=== PATIENT | female | born 1965 | race African-American/Black ===

== ENCOUNTER → 2022-11-04 | Emergency (ER) | payer BC, OTHER ==
[~2022-11-04] VITALS: Ht 172.7 cm; Wt 95.3 kg
[~2022-11-04] MED LIST: FAMO20TA8 PO; FAMOTIDINE 20 MG TABLET PO ONE; MAG-AL HYDROX/SIMETH 30 ML UDC PO ONE; POLY119P2 PO
[2022-11-04 20:50] LABS: BASOPHILS # (AUTO) 0.1 K/uL (0.0-0.2); EOSINOPHILS % (AUTO) 0.6 % (0.0-4.0); HEMATOCRIT 43.8 % (36-48); HEMOGLOBIN 14.3 g/dL (12.0-16.0); LYMPHOCYTES # (AUTO) 1.3 K/uL (1.0-5.5); LYMPHOCYTES % (AUTO) 25.1 % (20.5-51.5); MEAN CORPUSCULAR HEMOGLOBIN 29 pg (27-31); MEAN CORPUSCULAR HGB CONC 33 % (32-36); MEAN CORPUSCULAR VOLUME 87 fL (79.0-98.0); MONOCYTES # (AUTO) 0.3 K/uL (0.0-1.0); MONOCYTES % (AUTO) 5.8 % (1.7-9.3); NEUTROPHILS # (AUTO) 3.6 K/uL (1.8-7.7); NEUTROPHILS % (AUTO) 67.5 % (40.0-70.0); PLATELET COUNT (AUTO) 180 K/uL (130-430); RED BLOOD CELL COUNT(AUTO) 5.03 MIL/uL (4.2-6.2); RED CELL DISTRIBUTION WIDTH 13.8 % (9.0-15.0); WHITE BLOOD COUNT (AUTO) 5.4 K/uL (4.8-10.8)
[2022-11-04 21:00] LABS: CALCIUM 9.5 mg/dL (8.4-11.0); CREATININE 1.01 mg/dL (0.55-1.30); POTASSIUM 3.7 mmol/L (3.5-5.1)
[2022-11-04 21:05] LABS: TOTAL BILIRUBIN 0.5 mg/dL (0.0-1.0)
[2022-11-04 21:33] VITALS: BP_SYST 159; PULSE 60; RESP 17; TEMP 98; O2SAT 97
[2022-11-05 00:15] VITALS: BP_SYST 114; PULSE 57; RESP 20; TEMP 97.7; O2SAT 98
== END | disposition home or self-care (01) ==
LOC: SED 17:17
DX: K59.00 Constipation, unspecified (principal); K29.70 Gastritis, unspecified, without bleeding; R94.31 Abnormal electrocardiogram [ECG] [EKG]; K64.4 Residual hemorrhoidal skin tags; D64.9 Anemia, unspecified; I10 Essential (primary) hypertension; Z79.899 Other long term (current) drug therapy
CPT/HCPCS: 36415; 71045; 80053; 84484; 85025; 85610-TC; 85730-TC; 93005; 99285